=== PATIENT | female | born 1990 | race Caucasian/White ===

== ENCOUNTER 2018-02-01 03:14 | Observation (INO) ==
--- OUTSIDE RECORDS SUMMARY | 2018-02-01 03:19 | External Medical Summary | Continuity of Care Document ---
:1990 Author Organization [facility] Address [address] [place], [place] [id number] Phone Care Team Providers Name Role Phone [facility] Unavailable Allergies, Adverse Reactions, Alerts Substance Reaction Severity Status Penicillins Hives Unknown Active erythromycin base Nausea Unknown Active cephalexin Hives Unknown Active Medications Medication Instructions Dosage Effective Dates Status Comments (start - stop) Vitamin take 1 tablet by Not Available - Active tablet oral route every day ProAir HFA 90 inhale 2 puff by - Active mcg/actuation inhalation route aerosol inhaler every 4 - 6 hours as needed Problems Condition Effective Dates (start - stop) Clinical Status Follow-Up, Routine - Follow-Up, Routine - Follow-Up, Routine - Supervision of other high risk - pregnancies, first trimester Twin , - monochorionic/diamniotic, first trimester Previous Low Transverse - 10 weeks gestation of - Twin preg, unsp num plcnta & amnio - sacs, first trimester Previous Low Transverse - Obesity complicating , first - trimester 9 weeks gestation of - Twin preg, unsp num plcnta & amnio - sacs, first trimester Previous Low Transverse - Pap Smear Screening, Cervix - Encounter for suprvsn of normal - , first trimester 9 weeks gestation of - Twin , - monochorionic/diamniotic, first trimester Previous Low Transverse - 11 weeks gestation of - Previous Low Transverse - Previous Low Transverse - Previous Low Transverse - Pap Smear Screening, Cervix - Asthma Active Active Procedures Procedure Date OB Visit No Charge Results Test Name Date and Time Measure Units Reference Range Abnormal Flag Comments Unknown Advance Directives Directive Yes / No Effective Date File Name Unknown Encounters Encounter Practice Location Reason(s) Diagnoses Date Provider Care Team Description For Visit Members [facility] [place] Supervision of Jose D In Womens other high risk [facility], pregnancies, 8 700 [address] first Medical 1522, [facility] [place], , [place] Abreu, monochorionic/stephanie 120, , mniotic, first [place], trimesterPrevious [place], tel:[phone] Low Transverse [phone] [id number] C-Ilmrrfo56 weeks , [place]. gestation of tel: [phone] [facility] [place] Twin , Jose D In Womens Ultrasound monochorionic/stephanie [facility], mniotic, first 8 700 PO Box trimesterPrevious Medical 1522, Low Transverse Center [place], C-Pucsead15 weeks Saúl Abreu, gestation of 120, , [place], tel:[phone] , [place]. tel: [phone] [facility] [place] Twin preg, unsp Mar-2 Jose D In Womens Ultrasound num plcnta & [facility], amnio sacs, first 8 700 PO Box trimesterPrevious Medical 1522, Low Transverse Center [place], C-SectionObesity Saúl Abreu, complicating 120, [id number], , first [place], [place] trimester9 weeks [place], tel:[phone] gestation of [phone] , [place]. tel: [phone] [facility] [place] Twin preg, unsp Mar-2 Jose D In Womens num plcnta & [facility] CHRISTOPHER, amnio sacs, first 8 700 PO Box trimesterPrevious Medical 1522, Low Transverse Center [place], C-SectionBillie Abreu, [facility], Smear Screening, 120, , CervixEncounter [place], for suprvsn of [place], tel:[phone] normal , [phone] first trimester9 , [place]. weeks gestation tel: of [phone] [facility] [place] Dec-2 Jose D In Womens Follow-Up, 1-201 [facility] CHRISTOPHER, Routine 6 700 PO [address] Medical [address], [address] [place], [facility], 120, [id number], [place], [place], tel:[phone] , [place]. tel: [phone] [facility] [place] Dec-0 Jose D In Womens Follow-Up, 2-201 [facility] CHRISTOPHER, Routine 6 700 PO Box Medical [address], [address] [place], [facility], 120, , [place], tel:[phone] , [place]. tel: [phone] [facility] [place] Nov-2 Jose D In Womens Follow-Up, 3-201 [facility] CHRISTOPHER, Routine 6 700 PO Box Medical [address], [address] [place], [facility] [place], 120, [id number], [place], tel:[phone] , [place]. tel: [phone] [facility] [place] Previous Low Nov-0 Jose D In Womens Transverse 7-201 [facility] CHRISTOPHER, 6 700 PO Box Medical [address], [address] [place], [facility] [place], 120, [id number], [place], tel:[phone] , [place]. tel: [phone] [facility] [place] Previous Low Oct-2 Jose D Referring In Womens Transverse 4-201 [place]. Provider: Health CHRISTOPHER, 6 700 [place] PO Box Medical Jose D L, 1522, [address], [facility] [place], 120, [place] , [place] [facility] 120, [place], tel: [phone] [place], , [place]. [id number]. tel: tel: [phone] [facility] [place] Previous Low Oct-1 Jos Ed In Womens Transverse 0-201 [facility], 6 700 [facility] 15[address], [address] [place], [facility] [place], 120, [id number], [place], tel: [phone] , [place]. tel: [phone] [facility] [place] Sep-1 Jose D Referring In Womens 9-201 [place]. Provider: Health PA, 6 700 [place] PO Box Medical [facility] L, 1522, [address] [place], [facility] [place], 120, [place] [id number], [facility], [place], tel:[phone] [place], , [place]. [id number]. tel: tel: [phone] [facility] [place] Sep-0 Jose D Referring In Womens 7-201 [place]. Provider: Health CHRISTOPHER, 6 700 [place] Box Medical [facility] L, 1522, [address] [place], [facility], 120, [place] [id number], [facility], [place], tel:[phone] [place], , [place]. [id number]. tel: tel: [phone] [facility] [place] Pap Smear Apr-2 Jose D In Womens Screening, Cervix 8-201 [facility] [place], 6 700 [facility] 15[address], [address] [place], [facility] [place], 120, [id number], [place], tel:[phone] , [place]. tel: [phone] [facility] [place] Apr-1 Krystian In Womens 3-201 [facility], 6 700 Box Medical [address], [address] [place], [facility] [place], 120, [id number], [place], tel:[phone] , [place]. tel:[phone] Family History Family Member Diagnosis Age At Onset Maternal Grandmother Stroke Father Diabetes Paternal Grandfather Stroke Maternal Grandfather Stroke Paternal Grandmother Stroke Paternal Grandfather Cardiovascular Disease Father Kidney Disease Paternal Grandmother Cardiovascular Disease Immunizations Vaccine Date Status Comments Tdap completed Source: New Immunization Record Influenza, injectable, completed Source: New Immunization Record quadrivalent, preservative free, 3 yrs or older Rhophylac completed Source: New Immunization Record Payers Payer name Insurance type Covered democrat ID Authorization(s) [employer] [place] [id number] [employer] [place] [id number] [employer] - Medicaid [place] [id number] [employer] - Medicaid [place] [id number] Social History Type Description Quantity Date Captured Alcohol Use Details No Caffeine Use Details Unknown Tobacco Use Status Smoking Status Former smoker Vital Signs Date / Height Weight BMI Pulse Blood Temperature Respiratory Body Head BMI Time: Rate Pressure Rate Surface Circumference percentile Area 254.90 45.1 lbs 5 mm[Hg] 1:32 kg/m PM eter (2) Chief Complaint And Reason For Visit Unknown Chief Complaint And Reason For Visit Reason For Referral Reason For Referral Unknown Plan Of Care Date Type Action Status Appointment Leida Manzano BOOKED Appointment Leida Manzano BOOKED Future Order: Radiology Order Ultrasound < 14 wks ([id number]) Ordered Future Order: Radiology Order Ultrasound OB, Transvaginal ([id number] ) Ordered Future Order: Radiology Order Ultrasound OB, Transvaginal ([id number] ) Ordered Future Order: Radiology Order Ultrasound < 14 wks ([id number]) Ordered Future Order: Lab Order Pap Smear With HPV Reflex If ASCUS Ordered ([id number]) Date Type Problem Goal Intervention Status Start Date Unknown. History Of Present Illness Encounter Date Complaint History Of Present Illness This patient has no known history of present illness Functional Status Encounter Date Functional Assessment Cognitive Assessment Unknown Medications Administered Medication Instructions Dosage Effective Dates (start - stop) Status Comments Drug Treatment Unknown Instructions Date Instruction Additional Information domestic violence seat belt use childbirth classes / hospital facilities hospital registration genetic testing Zika virus assessment & precautions HIV and other routine tests risk factors identified by history anticipated course of care nutrition and weight gain counseling, special diet toxoplasmosis precautions (cats / raw meat) sexual activity exercise indications for ultrasound influenza vaccine environmental / work hazards travel use of any medications (including supplements, vitamins, herbs, OTC drugs) Giving encouragement to exercise Related to Body mass index 45.0-49.9 Giving encouragement to exercise Related to Body mass index 45.0-49.9 HIV and other routine tests risk factors identified by history anticipated course of care nutrition and weight gain counseling, special diet toxoplasmosis precautions (cats / raw meat) sexual activity exercise indications for ultrasound influenza vaccine environmental / work hazards travel use of any medications (including supplements, vitamins, herbs, OTC drugs) domestic violence seat belt use childbirth classes / hospital facilities hospital registration genetic testing new ob handbook risks
--- OUTSIDE RECORDS SUMMARY | 2018-02-01 03:19 | External Medical Summary | Continuity of Care Document ---
:1990 Author Organization [facility] Address [address] [place], [place] [id number] Phone Care Team Providers Name Role Phone [facility] Unavailable Allergies, Adverse Reactions, Alerts Substance Reaction [...] - Follow-Up, Routine - Follow-Up, Routine - Urticaria, unspecified - Twin , - monochorionic/diamniotic, unsp trimester Previous Low Transverse - 16 weeks gestation of - Supervision of other high risk - pregnancies, first trimester Twin , - monochorionic/diamniotic, first trimester Previous Low Transverse - 10 weeks gestation of - Supervision of other high risk - pregnancies, second trimester Twin , - monochorionic/diamniotic, unsp trimester Other malformation of placenta, second - trimester 17 weeks gestation of - Supervision of other high risk - pregnancies, second trimester Twin , - monochorionic/diamniotic, unsp trimester Previous Low Transverse - Type A blood, Rh negative - Twin preg, unsp num plcnta & [...] Transverse - 11 weeks gestation of - Twin , - monochorionic/diamniotic, first trimester Previous Low Transverse - Obesity complicating , second - trimester 14 weeks gestation of - Twin , - monochorionic/diamniotic, unsp trimester Previous Low Transverse - 14 weeks gestation of - Type A blood, Rh negative - Previous Low Transverse - Previous Low Transverse - Previous Low Transverse - Pap Smear Screening, Cervix - Asthma Active Active Procedures Procedure Date OB Visit No Charge - [employer] Results Test Name Date and Time Measure Units Reference Range Abnormal Flag Comments Unknown Advance Directives Directive Yes / No Effective Date File Name Unknown Encounters Encounter Practice Location Reason(s) Diagnoses Date Provider Care Team Description For Visit Members [facility] [place] Supervision of Jose D In Womens other high risk 0-201 [facility], pregnancies, 8 700 PO Box [facility] 1522, [facility], , Dr, Sa[place], monochorionic/stephanie 120, [id number], mniotic, unsp [place], [place] trimesterPrevious [place], tel:+ Low Transverse [phone] C-SectionType A , [place]. blood, Rh tel: negative [phone] [facility] [place] Supervision of November-3 Jose D In Womens Ultrasound other high risk 0-201 [facility], pregnancies, 8 700 PO Box second Medical 1522, trimesterTwin Center [place], , Saúl Abreu, monochorionic/stephanie 120, [id number], mniotic, unsp [place], [place] trimesterOther [place], tel:+ malformation of [phone] placenta, second , [place]. [id number] weeks tel: gestation of [phone] [facility] [place] Urticaria, November-2 Jose D In Womens unspecifiedTwin 1-201 [facility], , 8 700 PO Box monochorionic/stephanie Medical 1522, mniotic, unsp Center [place], trimesterPrevious Saúl Abreu, Low Transverse 120, [id number], C-Qpfsdkq93 weeks [place], gestation of [place], tel:+ [phone] , [place]. tel: [phone] [facility] [place] Twin , May-1 Jose D In Womens monochorionic/stephanie 0-201 [facility], mniotic, unsp 8 700 PO Box trimesterPrevious Medical 1522, Low Transverse Center [place], C-Dkappui13 weeks Saú[place] Abreu, gestation of 120, , pregnancyType A [place], [place] blood, Rh [place], tel:+ negative [phone] , [place]. tel: [phone] [facility] [place] Twin , May-1 Jose D In Womens Ultrasound monochorionic/stephanie 0-201 [facility], mniotic, first 8 700 PO Box trimesterPrevious Medical 1522, Low Transverse [place], C-SectionObesity Saúl Abreu, complicating 120, [id number], , second [place], [place] [id number] weeks [place], tel:[phone] gestation of [phone] [id number] , [place]. tel: [phone] [facility] [place] Supervision of Oct- Jose D In Womens other high risk [facility], pregnancies, 8 700 PO Box first Medical 1522, trimesterTwin Center [place], , Saúl Abreu, monochorionic/stephanie 120, [id number], mniotic, first [place], [place] trimesterPrevious [place], tel:+ Low Transverse [phone] C-Glhzeck80 weeks , [place]. gestation of tel: [phone] [facility] [place] Twin , Apr-1 Jose D In Womens Ultrasound monochorionic/stephanie - [facility], mniotic, first 8 700 PO Box trimesterPrevious Medical 1522, Low Transverse [place], C-Ovidjnr41 weeks Saú[place] Abreu, gestation of 120, , [place], [place], tel:[phone] , [place]. tel: [phone] [facility] [place] Twin preg, unsp Mar-2 Jose D In Womens Ultrasound num plcnta & [facility], amnio sacs, first 8 700 PO Box trimesterPrevious Medical 1522, Low Transverse [facility] [place], C-SectionObesity Saúl Abreu, complicating 120, , , first [place], trimester9 weeks [place], tel: gestation of , [place]. tel: [phone] [facility] [place] Twin preg, unsp Mar-2 Jose D In Womens num plcnta & [facility], amnio sacs, first 8 700 PO Box trimesterPrevious Medical 1522, Low Transverse [place], C-SectionPap Saú[place] Abreu, Smear Screening, 120, , CervixEncounter [place], for suprvsn of [place], tel: normal , first trimester9 , [place]. weeks gestation tel: of [phone] [facility] [place] Dec-2 Jose D In Womens Follow-Up, [place] CHRISTOPHER, Routine 6 700 PO Box Medical 1522, [place], [place] Abreu, 120, [id number], [facility] [place], tel:[phone] , [place]. tel: [phone] [facility] [place] Dec-0 Jose D In Womens Follow-Up, 2-201 [facility], Routine 6 700 PO Box Medical [address], [address] [place], [facility] [place], 120, [id number], [facility] [place], tel:[phone] , [place]. tel: [phone] [facility] [place] Nov-2 Jose D In Womens Follow-Up, 3-201 [place], Routine 6 700 PO Box Medical 15[address], [address] [place], [facility], 120, [id number], [facility], tel:[phone] , [place]. tel: [phone] [facility] [place] Previous Low Nov-0 Jose D In Womens Transverse 7-201 [place], 6 700 PO [place] [facility] 15[address], [address] [place], [facility], 120, [id number], [facility] [place], tel:[phone] , [place]. tel: [phone] [facility] [place] Previous Low Oct-2 Jose D Referring In Womens Transverse 4-201 [place]. Provider: Health PA, 6 700 [place] PO Box Medical Jose D L, 1522, [address], [facility], 120, [place] [id number], [place] [address], [place], [place], tel:[phone] [place], , . [id number]. tel: tel: [phone] [facility] [place] Previous Low Oct-1 Jose D In Womens Transverse 0-201 [facility], 6 700 PO Box Medical 15[address], [address] [place], [facility] [place], 120, [id number], [facility] [place], tel:[phone] , [place]. tel: [phone] [facility] [place] Sep-1 Jose D Referring In Womens 9-201 [place]. Provider: Health CHRISTOPHER, 6 700 [place] PO Box Medical Jose D L, 1522, Center [address] [place], [facility] Medical [place], 120, Center [id number], [place], [facility] 120, [place], [place], tel:[phone] [place], , [place]. [id number]. tel: tel:+ [phone] [facility] [place] Sep-0 Jose D Referring In Womens 7-201 [place]. Provider: Yessy WHITE, 6 700 [place] Box Medical Jose D L, 1522, Center [address] [place], [facility] Medical [place], 120, Center [id number], [place], [facility] 120, [place], [place], tel:[phone] [place], , [place]. [id number]. tel: tel:[phone] [facility] [place] Pap Smear Apr-2 Jose D In Womens Screening, Cervix 8-201 [place]. Yessy WHITE, 6 700 [facility] Medical 15[address], [address] [place], [facility] [place], 120, [id number], [place], [place], tel:[phone] , [place]. tel: [phone] [facility] [place] Apr-1 Krystian In Womens 3-201 Tran. Yessy WHITE, 6 700 [facility] Medical 15[address], [address] [place], [facility] [place], 120, [id number], [place], tel:[phone] , [place]. tel: [phone] Family History Family Member Diagnosis Age At [...] Authorization(s) [employer] - Medicaid [place] [id number] [employer] - Medicaid [place] [id number] [employer] - Medicaid [place] [id number] [employer] - Medicaid [place] [id number] Social History Type Description Quantity Date Captured Alcohol Use Details No Caffeine Use Details Unknown Tobacco Use Status Smoking Status Former smoker Vital Signs Date / Height Weight BMI Pulse Blood Temperature Respiratory Body Head BMI Time: Rate Pressure Rate Surface Circumference percentile Area 261.60 46.3 -2018 lbs 4 12:02 kg/m PM eter (2) 261.60 46.3 120/72 -2018 lbs 4 mm[Hg] 12:21 kg/m PM eter (2) Chief Complaint And Reason For Visit Unknown Chief Complaint And Reason For Visit Reason For Referral Reason For Referral Unknown Plan Of Care Date Type Action Status Appointment Leida Manzano BOOKED Appointment Leida Manzano BOOKED Appointment Leida Manzano BOOKED Appointment Leida Manzano BOOKED Appointment Leida Manzano BOOKED Appointment Leida Manzano BOOKED Appointment Leida Manzano BOOKED Appointment Leida Manzano BOOKED Appointment Leida Manzano BOOKED Appointment Leida Manzano BOOKED Appointment Leida Manzano BOOKED Appointment Leida Manzano BOOKED Appointment Leida Manzano BOOKED Appointment Leida Manzano BOOKED Appointment Leida Manzano BOOKED Appointment Leida Manzano BOOKED Appointment Leida Manzano BOOKED Appointment Leida Manzano BOOKED Appointment Leida Manzano BOOKED Appointment Leida Manzano BOOKED Appointment Leida Manzano BOOKED Appointment Leida Manzano BOOKED Appointment Leida Manzano BOOKED Appointment Leida Manzano BOOKED Appointment Leida Manzano BOOKED Appointment Leida Manzano BOOKED Appointment Leida Manzano BOOKED Appointment Leida Manzano BOOKED Appointment Leida Manzano BOOKED Appointment Leida Manzano BOOKED Appointment Leida Manzano BOOKED Appointment Leida Manzano BOOKED Appointment Leida Manzano BOOKED Appointment Leida Manzano BOOKED Future Order: Radiology Order Ultrasound, OB Limited ([id number]) Ordered Future Order: Radiology Order Umbilical Artery Echo ([id number]) Ordered Future Order: Radiology Order Ultrasound < 14 wks ([id number]) Ordered Future Order: Radiology Order Ultrasound OB, Transvaginal ([id number] ) Ordered Future Order: Radiology Order Ultrasound OB, Transvaginal ([id number] ) Ordered Future Order: Radiology Order Ultrasound < 14 wks ([id number]) Ordered Future Order: Radiology Order Ultrasound < 14 wks ([id number]) Ordered Future Order: Lab Order Pap Smear [...]
--- OUTSIDE RECORDS SUMMARY | 2018-02-01 03:19 | External Medical Summary | Continuity of Care Document ---
:1990 Author Organization [facility] [employer] [facility] [place] Address [address] [place], [place] [id number] Phone Care Team Providers Name Role Phone [facility] Unavailable Allergies, Adverse Reactions, Alerts Substance Reaction [...] - Follow-Up, Routine - Follow-Up, Routine - Twin preg, unsp num plcnta & amnio - sacs, first trimester Previous Low Transverse - Pap Smear Screening, Cervix - Encounter for angelan of normal - , first trimester 9 weeks gestation of - Supervision of other [...] - Asthma Active Active Procedures Procedure Date Pap Smear handling/transport Initial OB Visit No Charge - OPERATING ROOM SCHEDULER Infct antign, chlamydia trac, ampl Neisseria Gonorrhea, Amplified DNA Results Test Name Date and Time Measure Units Reference Range Abnormal Flag Comments Panel Description: Pap Smear With HPV Reflex If ASCUS Document Pap Smear 14:15:00 See scanned report Panel Description: Obstetric Panel, Including HIV HBsAg Screen Negative Negative 15:20:00 RPR Non Reactive Non Reactive 15:20:00 Rubella 1.58 index Immune >0.99 Antibodies, IgG 15:20:00 Non-immune <0.90 Equivocal 0.90 - 0.99 Immune >0.99 ABO Grouping A 15:20:00 Rh Factor Negative Please note: 15:20:00 Prior records for this patient's ABO / Rh type are notavailable for additional verification. Antibody Screen Negative Negative 15:20:00 HIV Screen 4th Non Reactive Non Reactive Generation wRfx 15:20:00 WBC 9.5 x10E3/uL 3.4-10.8 15:20:00 RBC 4.70 x10E6/uL 3.77-5.28 15:20:00 Hemoglobin 12.8 g/dL 11.1-15.9 15:20:00 Hematocrit 40.6 % 34.0-46.6 15:20:00 MCV 86 fL 79-97 15:20:00 MCH 27.2 pg 26.6-33.0 15:20:00 MCHC 31.5 g/dL 31.5-35.7 15:20:00 RDW 15.0 % 12.3-15.4 15:20:00 Platelets 316 x10E3/uL 150-379 15:20:00 Neutrophils 71 % Not Estab. 15:20:00 Lymphs 22 % Not Estab. 15:20:00 Monocytes 7 % Not Estab. 15:20:00 Eos 0 % Not Estab. 15:20:00 Basos 0 % Not Estab. 15:20:00 Immature Cells 15:20:00 Neutrophils 6.7 x10E3/uL 1.4-7.0 (Absolute) 15:20:00 Lymphs (Absolute) 2.1 x10E3/uL 0.7-3.1 15:20:00 Monocytes(Absolut 0.6 x10E3/uL 0.1-0.9 e) 15:20:00 Eos (Absolute) 0.0 x10E3/uL 0.0-0.4 15:20:00 Baso (Absolute) 0.0 x10E3/uL 0.0-0.2 15:20:00 Immature 0 % Not Estab. Granulocytes 15:20:00 Immature Grans 0.0 x10E3/uL 0.0-0.1 (Abs) 15:20:00 NRBC 15:20:00 Hematology Comments: 15:20:00 Panel Description: Bacteria identified in Urine by Culture Urine Culture, 15:18:00 Final report Routine Result 1 15:18:00 Comment Culture shows less than 10,000 colony forming units of bacteria permilliliter of urine. This colony count is not generally consideredto be clinically significant. Panel Description: GC/CT Amplified Probe Chlamydia Trachomatis RNA, [facility] 14:51:03 Negative Negative N Neisseria Gonorrhoeae RNA, [facility] 14:51:03 Negative Negative N Advance Directives Directive Yes / No Effective Date File Name Unknown Encounters Encounter Practice Location Reason(s) Diagnoses Date Provider Care Team Description For Visit Members [facility] [place] Supervision of Oct- Jose D In Womens other high risk [place], pregnancies, 8 700 [address] first Medical 1522, trimesterTwin Center [employer] [place], , Sa[place]l Abreu, monochorionic/stephanie 120, [id number], mniotic, first [place], trimesterPrevious [place], tel:+ Low Transverse [phone] C-Ekksdkd70 weeks , [place]. gestation of tel: [phone] [facility] [place] Twin , Apr- Jose D In Womens Ultrasound monochorionic/stephanie [facility] [place], mniotic, first 8 700 PO Box trimesterPrevious Medical 1522, Low Transverse Center [employer] [place], C-Eqwemtj21 weeks Saúl Abreu, gestation of 120, , [place], tel:[phone] , [place]. tel: [phone] [facility] [place] Twin preg, unsp Mar-2 Jose D In Womens Ultrasound num plcnta & [facility] [place], amnio sacs, first 8 700 PO Box trimesterPrevious Medical 1522, Low Transverse Center [employer] [place], C-SectionObesity Saúl Abreu, complicating 120, [id number], , first [place], [place] trimester9 weeks [place], tel:+ gestation of , [place]. tel: [phone] [facility] [place] Twin preg, unsp Mar-2 Jose D In Womens num plcnta & [facility] [place], amnio sacs, first 8 700 PO Box trimesterPrevious Medical 1522, Low Transverse Center [employer] [place], C-SectionPap Saúl Abreu, Smear Screening, 120, , CervixEncounter [place], for suprvsn of [place], tel:[phone] normal , [phone] [id number] first trimester9 , [place]. weeks gestation tel: of [phone] [facility] [place] Dec-2 Jose D In Womens Follow-Up, [facility] [place], Routine 6 700 PO Box Medical [address], [address] [place], [facility] [place], 120, [id number], [place], tel: [phone] , [place]. tel: [phone] [facility] Dec-0 Jose D In Womens Follow-Up, 2-201 [facility] [place], Routine 6 700 [facility] Medical 15[address], [address] [place], [facility] [place], 120, [id number], [place], tel: [phone] , [place]. tel: [phone] [facility] [place] Nov-2 Jose D In Womens Follow-Up, 3-201 [facility] [place], Routine 6 700 [facility] Medical [address], [address] [place], [facility], 120, [id number], [facility] [place], tel:[phone] , [place]. tel: [phone] [facility] [place] Previous Low Nov-0 Jose D In Womens Transverse 7-201 [facility] [place], 6 700 [facility] Medical [address], [address] [place], [facility], 120, [id number], [place], [place], tel:[phone] , [place]. tel: [phone] [facility] [place] Previous Low Oct-2 Jose D Referring In Womens Transverse 4-201 [place]. Provider: Health CHRISTOPHER, 6 700 [place] PO Box Medical Jose D L, [address], [address], [facility] [place], 120, [place] [id number], [place] [address], [place], [place], tel:[phone] [place], , [place]. [id number]. tel: tel: [phone] [facility] [place] Previous Low Oct-1 Jose D In Womens Transverse 0-201 [facility] [place], 6 700 [address] [place] [facility] [address], [address] [place], [facility] [place], 120, [id number], [place], tel:[phone] , [place]. tel: [phone] [facility] [place] Sep-1 Jose D Referring In Womens 9-201 [place]. Provider: Health CHRISTOPHER, 6 700 [place] PO Box Medical Jose D L, 1522, [facility] Dr [place], [facility] [place], 120, [place] [id number], [place], [facility] 120, [place], [place], tel:[phone] [place], , [place]. [id number]. tel: tel: [phone] [facility] [place] Sep-0 Jose D Referring In Womens 7-201 [place]. Provider: Health CHRISTOPHER, 6 700 [place] PO Box Medical Jose D L, 1522, Center [address], [facility] [place], 120, [place] [id number], [place], [facility] 120, [place], [place], tel:[phone] [place], , [place]. [id number]. tel: tel: [phone] [facility] [place] Pap Smear Oct-2 Jose D In Womens Screening, Cervix 8-201 [facility] [place], 6 700 [facility] Medical [address], [address] [place], [facility] [place], 120, [id number], [place], tel:[phone] , [place]. tel: [phone] [facility] [place] Oct-1 Krystian In Womens 3-201 Tran. Health [place], 6 700 Box Medical [address], [address] [place], [facility] [place], 120, [id number], [place], tel:[phone] , [place]. tel: [phone] Family History Family Member Diagnosis Age At [...] name Insurance type Covered democrat ID Authorization(s) [facility] [place] [id number] [employer] [place] [employer] - Medicaid [place] [id number] [employer] - Medicaid [place] [id number] [employer] [place] [employer] - Medicaid [place] [id number] Social History Type Description Quantity Date Captured Alcohol Use Details No Caffeine Use Details Unknown Tobacco Use Status Never smoked tobacco Smoking Status Former smoker Non-Smoking Tobacco Use : No Details Available : No Details Available Details Vital Signs Date / Height Weight BMI Pulse Blood Temperature Respiratory Body Head BMI Time: Rate Pressure Rate Surface Circumference percentile Area 250.60 44.3 132/80 lbs 9 mm[Hg] 2:25 kg/m PM eter (2) Chief Complaint And Reason For Visit Unknown Chief Complaint And Reason For Visit Reason For Referral Reason For Referral Unknown Plan Of Care Date Type Action Status Appointment Leida Manzano BOOKED Appointment Leida Manzano BOOKED Future Order: Radiology Order Ultrasound < 14 wks ([id number]) Ordered Future Order: Radiology Order Ultrasound OB, Transvaginal ([id number] ) Ordered Future Order: Radiology Order Ultrasound OB, Transvaginal ([id number] ) Ordered Future Order: Radiology Order Ultrasound < 14 wks ([id number]) Ordered Future Order: Lab Order Pap Smear [...]
--- OUTSIDE RECORDS SUMMARY | 2018-02-01 03:19 | External Medical Summary | Continuity of Care Document ---
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 - Morbid (severe) obesity due to excess - calories Twin , - monochorionic/diamniotic, unsp trimester Previous Low Transverse - Type A blood, Rh negative - Urticaria, unspecified - Twin , - [...] Other malformation of placenta, second - trimester 21 weeks gestation of - Supervision of other high risk - pregnancies, second trimester Twin , - monochorionic/diamniotic, unsp trimester Other malformation of placenta, second - trimester 17 weeks gestation of - Supervision of other high risk - pregnancies, second trimester Twin , - monochorionic/diamniotic, unsp trimester Previous Low Transverse - Type A blood, Rh negative - Supervision of other high risk - [...] - Asthma Active Active Procedures Procedure Date Ultrasnd exam, preg uterus, limited UMBILICAL ARTERY ECHO MIDDLE CEREBRAL ARTERY ECHO Results Test Name Date and Time Measure Units Reference Range Abnormal Flag Comments Unknown Advance Directives Directive Yes / No Effective Date File Name Unknown Encounters Encounter Practice Location Reason(s) Diagnoses Date Provider Care Team Description For Visit Members [facility] [place] Supervision of Dec-2 Jose D Referring In Womens other high risk 8-201 [place]. Provider: [facility], pregnancies, 8 700 Lashell Wedit Eliceo dudley [employer] Rahul, 1522, trimesterTwin Center 700 [place], Sa[place]l Abreu, monochorionic/stephanie 120, Center [id number], nataly, unsdedra [place], Saúl 120, [place] trimesterPrevious [place], tel:[phone] Low Transverse [id number] [place], C-SectionType A , [place]. [id number]. blood, Rh tel: tel:[phone] negative [phone] [facility] [place] Supervision of Rafael-2 Jose D Referring In Womens Ultrasound other high risk 8-201 [place]. Provider: [facility], pregnancies, 8 700 Lashell Fenton luis enrique [employer] J, 1522, trimesterTwin Center 700 angie [place], Sa[place] Abreu, monochorionic/stephanie 120, Center [id number], mnimarcy, unsp [place], Saúl 120, [place] trimesterOther [place], tel:[phone] malformation of [id number] [place], [address] placenta, second , [place]. [id number]. qigvirbtq48 weeks tel:+31 tel:+1-316 gestation of [id number] [facility] [place] Morbid (severe) Rafael-1 Jose D In Womens obesity due to 4-201 [facility], excess 8 700 PO Box caloriesTwin Medical 1522, , [facility], monochorionic/stephanie , [place], mniotic, unsp 120, [id number], trimesterPrevious [place], [place] Low Transverse [place], tel:[phone] C-SectionType A [id number] blood, Rh , [place]. negative tel:[phone] [facility] [place] Supervision of Rafael-1 Jose D In Womens Ultrasound other high risk 4-201 [facility]. [facility] [place], pregnancies, 8 700 PO Box second Medical 1522, [facility], , Sa[place]l Abreu, monochorionic/stephanie 120, [id number], mniotic, unsp [place], [place] trimesterOther [place], tel:[phone] malformation of [id number] 492039 placenta, second , [place]. hkvdykpol18 weeks tel:+08-16 gestation of [phone] [facility] [place] Supervision of November-3 Jose D In Womens other high risk 0-201 [facility] [place], pregnancies, 8 700 PO Box second Medical 1522, [facility], , Sa[place] Abreu, monochorionic/stephanie 120, [id number], mniotic, unsp [place], [place] trimesterPrevious [place], tel:[phone] Low Transverse [id number] C-SectionType A , [place]. blood, Rh tel:+08-16 negative [phone] [facility] [place] Supervision of November-3 Jose D In Womens Ultrasound other high risk 0-201 [facility] [place], pregnancies, 8 700 PO Box second Medical 1522, [facility], , Saúl Abreu, monochorionic/stephanie 120, [id number], mniotic, unsp [place], [place] trimesterOther [place], tel:[phone] malformation of [id number] placenta, second , [place]. nywodebis76 weeks tel:+1-31 gestation of [phone] [facility] [place] Urticaria, May-2 Jose D In Womens unspecifiedTwin 1-201 [facility], , 8 700 PO Box monochorionic/stephanie Medical 1522, mniotic, unsp [facility], trimesterPrevious Sa[place]l Abreu, Low Transverse 120, [id number], C-Ocivwvq65 weeks [place], gestation of [place], tel:+ [phone] [address] , [place]. tel: [phone] [facility] [place] Twin , May-1 Jose D In Womens monochorionic/stephanie 0-201 [facility] [place], mniotic, unsp 8 700 PO Box trimesterPrevious Medical 1522, Low Transverse Center [place], C-Yxdzejk97 weeks Saúl Abreu, gestation of 120, [id number], pregnancyType A [place], [place] blood, Rh [place], tel:+ negative [phone] 196790 , [place]. tel: [phone] [facility] [place] Twin , November-1 Jose D In Womens Ultrasound monochorionic/stephanie 0-201 [facility] [place], mniotic, first 8 700 PO Box trimesterPrevious Medical 1522, Low Transverse Center [place], C-SectionObesity Saúl Abreu, complicating 120, [id number], , second [place], exfcysvgr05 weeks [place], tel:+ gestation of [phone] 196790 , [place]. tel: [phone] [facility] [place] Supervision of Apr-1 Jose D In Womens other high risk 2-201 [facility] [place], pregnancies, 8 700 PO Box first Medical 1522, trimesterTwin Center [place], , Sa[place]l Abreu, monochorionic/stephanie 120, [id number], mniotic, first [place], trimesterPrevious [place], tel:+ Low Transverse [phone] 196790 C-Lsiuztx38 weeks , [place]. gestation of tel: [phone] [facility] [place] Twin , Apr-1 Jose D In Womens Ultrasound monochorionic/stephanie 2-201 [facility] [place], mniotic, first 8 700 PO Box trimesterPrevious Medical 1522, Low Transverse Center [place], C-Tgjkcvr56 weeks Saúl Abreu, gestation of 120, [id number], [place], tel:+ [phone] , [place]. tel: [phone] [facility] [place] Twin preg, unsp Mar-2 Jose D In Womens Ultrasound num plcnta & 9201 [place] [place], amnio sacs, first 8 700 PO Box trimesterPrevious Medical 1522, Low Transverse Center [place], C-SectionObesity , [place], complicating 120, , , first [place], trimester9 weeks [place], tel:+[phone] gestation of [id number] 196790 , [place]. tel: [phone] [facility] [place] Twin preg, unsp Mar-2 Jose D In Womens num plcnta & 9 [facility], amnio sacs, first 8 700 PO Box trimesterPrevious Medical 1522, Low Transverse Center [place], C-SectionPadedra Abreu, [place], Smear Screening, 120, , CervixEncounter [place], for suprvsn of [place], tel:+[phone] normal , first trimester9 , [place]. weeks gestation tel: of [phone] [facility] [place] Dec-2 Jose D In Womens Follow-Up, 1-201 [place] [place], Routine 6 700 PO Box Medical [address], [address], [place], 120, , [place], [place], tel:[phone] , [place]. tel: [phone] [facility] [place] Dec-0 Jose D In Womens Follow-Up, 2-201 [place] [place], Routine 6 700 PO Box Medical 15[address], [address], [place], 120, , [place], [place], tel:[phone] , [place]. tel: [phone] [facility] [place] Nov-2 Jose D In Womens Follow-Up, 3-201 [place]. [facility] [place], Routine 6 700 PO Box Medical 1522, [address], [place], 120, [id number], [facility] [place], tel:[phone] , [place]. tel: [phone] [facility] [place] Previous Low Nov-0 Jose D In Womens Transverse 7-201 [place]. Health CHRISTOPHER, 6 700 PO Box Medical 1522, [address] [place], [facility] [place], 120, [id number], [place], [place], tel:[phone] , [place]. tel: [phone] [facility] [place] Previous Low Oct-2 Jose D Referring In Womens Transverse 4-201 [place]. Provider: Yessy WHITE, 6 700 [place] PO Box Medical Jose D L, 1522, Center [address], [facility] [place], 120, Center [id number], [place], [facility] 120, [place], tel:[phone] [place], , [place]. [id number]. tel: tel:[phone] [facility] [place] Previous Low Oct-1 Jose D In Womens Transverse 0-201 [place]. Yessy WHITE, 6 700 [facility] Medical 1522, [address] [place], [facility] [place], 120, [id number], [place], tel:[phone] , [place]. tel: [phone] [facility] [place] Sep-1 Jose D Referring In Womens 9-201 [place]. Provider: Yessy WHITE, 6 700 [place] PO Box Medical Jose D L, 1522, Center [address], [facility] [place], 120, Center [id number], [place] [facility] 120, [place], tel:[phone] [place], , [place]. [id number]. tel: tel:[phone] [facility] [place] Sep-0 Jose D Referring In Womens 7-201 [place]. Provider: Yessy WHITE, 6 700 [place] PO Box Medical Jose D L, 1522, Center [address], [facility] [place], 120, Center [id number], [facility], [place], tel:[phone] [place], , [place]. [id number]. tel: tel:[phone] [facility] [place] Pap Smear Apr-2 Jose D In Womens Screening, Cervix 8-201 [place]. [facility], 6 700 PO Box Medical 15[address], [address] [place], [facility] [place], 120, [id number], [facility] [place], tel:[phone] [address] , . tel: [phone] [facility] [place] Krystian In Womens 3-201 Tran. [facility], 6 700 PO Box Medical 15[address], [address] [place], [facility] [place], 120, [id number], [facility] [place], tel:[phone] , [place]. tel: [phone] Family History Family Member Diagnosis Age At [...] Record Payers Payer name Insurance type Covered alliance party ID Authorization(s) [employer] [place] [employer] - Medicaid [place] [id number] [employer] - Medicaid [place] [id number] [employer] - Medicaid [place] [id number] [employer] - Medicaid [place] [id number] Social History Type Description Quantity Date Captured Unknown Vital Signs Date / Height Weight BMI Pulse Blood Temperature Respiratory Body Head BMI Time: Rate Pressure Rate Surface Circumference percentile Area Unknown Chief Complaint And Reason For Visit Unknown Chief Complaint And Reason For Visit Reason For Referral Reason For Referral Unknown Plan Of Care Date Type Action Status Appointment Leida Manzano BOOKED Appointment Leida Manzano BOOKED Appointment Leida Manzano BOOKED Appointment Leida Manzano BOOKED Appointment Leida Manzano BOOKED Appointment Leida Manzano BOOKED Appointment Leida Manzano BOOKED Appointment Leida Manzano BOOKED Appointment Jose JuanLeida macdonald BOOKED Appointment [place] BOOKED Appointment Jose JuanLeida BOOKED Appointment Jose JuanLeida BOOKED Appointment [place] BOOKED Appointment [place] BOOKED Appointment [place] BOOKED Appointment [place] Leida BOOKED Appointment Jose Juan Leida BOOKED Appointment [place], Leida BOOKED Appointment Jose Juan, Leida BOOKED Appointment Jose Juan, Leida BOOKED Appointment [place], Leida BOOKED Appointment [place], Leida BOOKED Appointment [place], Leida BOOKED Appointment [place], Leida BOOKED Appointment Jose Juan, Leida BOOKED Appointment Jose Juan, Leida BOOKED Appointment [place] BOOKED Future Order: Radiology Order Ultrasound, OB Limited ([id number]) Ordered Future Order: Radiology Order Umbilical Artery Echo ([id number]) Ordered Future Order: Radiology Order Ultrasound, OB Limited ([id number]) Ordered Future Order: Radiology Order Umbilical Artery Echo ([id number]) Ordered Future Order: Radiology Order Ultrasound, OB Limited ([id number]) Ordered Future Order: Radiology Order Umbilical Artery Echo ([id number]) Ordered Future Order: Radiology Order Ultrasound < 14 wks ([id number]) Ordered Future Order: Radiology Order Ultrasound OB, Transvaginal ([id number] ) Ordered Future Order: Radiology Order Ultrasound OB, Transvaginal ([id number] ) Ordered Future Order: Radiology Order Ultrasound < 14 wks ([id number]) Ordered Future Order: Radiology Order Ultrasound < 14 wks ([id number]) Ordered Future Order: Lab Order Pap Smear [...]
--- OUTSIDE RECORDS SUMMARY | 2018-02-01 03:19 | External Medical Summary | Continuity of Care Document ---
:1990 Author Organization [facility] Address [address] [place], [place] [id number] Phone Care Team Providers Name Role Phone [facility] Unavailable Allergies, Adverse Reactions, Alerts [...] every 4 - 6 hours as needed Bactrim DS 800 take 1 tablet by Not Available - No Longer mg-160 mg tablet oral route every Active 12 hours for 5 days Problems Condition Effective Dates (start - stop) Clinical Status Follow-Up, Routine - Follow-Up, Routine - Follow-Up, Routine - Morbid (severe) obesity due to excess [...] - trimester 19 weeks gestation of - Supervision of other [...] Members Sage [place] Supervision of Jose D Referring In Womens other high risk 8-201 Victor[place]. Provider: Health CHRISTOPHER, pregnancies, 8 700 [employer] second Medical Rylan Kay, 1522, trimesterTwin Center [address], Ste Medical [place] monochorionic/stephanie 120, Center [id number], william ingram, Saú[place] 120, [place] trimesterPrevious [place], tel:[phone] Low Transverse [id number] [place], C-SectionType A , [place]. [id number]. blood, Rh tel: tel:[phone] negative [phone] [facility] [place] Supervision of Jose D Referring In Womens Ultrasound other high risk 8-201 Victorina. Provider: Yessy WHITE, pregnancies, 8 700 Lashell Treatsie Box second [employer] Rylan Kay, 1522, trimesterTwin Center [address], [place] Abreu, monochorionic/stephanie 120, Center [id number], mnimarcy, unsp [place], Sa[place]l 120, [place] trimesterOther [place], tel:[phone] malformation of [id number] [place], 2150[address] placenta, second , [place]. [id number]. [id number] weeks tel:+08-16 tel:+1-316 gestation of [id number] [facility] [place] Morbid (severe) Rafael-1 Jose D In Womens obesity due to 4-201 Victorina. Health PA, excess 8 700 PO Box caloriesTwin Medical 1522, , [facility], monochorionic/stephanie , [place], mniotic, unsp 120, [id number], trimesterPrevious [place], [place] Low Transverse [place], tel:[phone] C-SectionType A [id number] blood, Rh , [place]. negative tel:[phone] [facility] [place] Supervision of Rafael-1 Jose D In Womens Ultrasound other high risk 4-201 Victorina. Health PA, pregnancies, 8 700 PO Box second Medical 1522, [facility], , [place] Abreu, monochorionic/stephanie 120, [id number], mniotic, unsp [place], [place] trimesterOther [place], tel:+ malformation of [phone] placenta, second , [place]. [id number] weeks tel:+08-16 gestation of [phone] [facility] [place] Supervision of November-3 Jose D In Womens other high risk 0-201 Victorina. Health PA, pregnancies, 8 700 PO Box second Medical 1522, trimesterTwin [facility], , Sa[place] Abreu, monochorionic/stephanie 120, [id number], mniotic, unsp [place], [place] trimesterPrevious [place], tel:+ Low Transverse [phone] C-SectionType A , [place]. blood, Rh tel: negative [phone] [facility] [place] Supervision of November-3 Jose D In Womens Ultrasound other high risk 0-201 Victor[place]. Health PA, pregnancies, 8 700 PO Box second Medical 1522, [facility] [place], , [place] Abreu, monochorionic/stephanie 120, [id number], mniotic, unsp [place], [place] trimesterOther [place], tel:[phone] malformation of [phone] [id number] placenta, second , [place]. [id number] weeks tel:+31 gestation of [phone] [facility] [place] Urticaria, May-2 Jose D In Womens unspecifiedTwin 1-201 Victorina. Health PA, , 8 700 PO Box monochorionic/stephanie Medical 1522, mniotic, unsp Center [place], trimesterPrevious [place] Abreu, Low Transverse 120, [id number], C-Inatzie25 weeks [place], gestation of [place], tel:+ [phone] , [place]. tel: [phone] [facility] [place] Twin , May-1 Jose D In Womens monochorionic/stephanie 0-201 Victorina. Health PA, mniotic, unsp 8 700 PO Box trimesterPrevious Medical 1522, Low Transverse Center [place], C-Ipbmpvk62 weeks Sa[place] Abreu, gestation of 120, [id number], pregnancyType A [place], blood, Rh [place], tel:+ negative [phone] 196790 , [place]. tel: [phone] [facility] [place] Twin , May-1 Jose D In Womens Ultrasound monochorionic/stephanie 0-201 Victorina. Health PA, mniotic, first 8 700 PO Box trimesterPrevious Medical 1522, Low Transverse Center [place], C-SectionObesity [place] Abreu, complicating 120, [id number], , second [place], [id number] weeks [place], tel:+ gestation of [phone] 196790 , [place]. tel: [phone] [facility] [place] Supervision of Apr-1 Jose D In Womens other high risk 2-201 [place]. Health PA, pregnancies, 8 700 PO Box first Medical 1522, trimesterTwin Center [place], , [place] Abreu, monochorionic/stephanie 120, [id number], mniotic, first [place], [place] trimesterPrevious [place], tel:+ Low Transverse [phone] C-Fdcieyl66 weeks , [place]. gestation of tel: [phone] [facility] [place] Twin , Apr-1 Jose D In Womens Ultrasound monochorionic/stephanie 2-201 Victorina. Health PA, mniotic, first 8 700 PO Box trimesterPrevious Medical 1522, Low Transverse [place], C-Sldfokj29 weeks Sa[place] Abreu, gestation of 120, [id number], [place], [place], tel:+ [phone] , [place]. tel:[phone] [facility] [place] Twin preg, unsp Mar-2 Jose D In Womens Ultrasound num plcnta & 9 Victorina. Health PA, amnio sacs, first 8 700 PO Box trimesterPrevious Medical 1522, Low Transverse [place], C-SectionObesity , [place], complicating 120, [id number], , first [place], [place] trimester9 weeks [place], tel:+[phone] gestation of , [place]. tel: [phone] [facility] [place] Twin preg, unsp Mar-2 Jose D In Womens num plcnta & 9 Victorina. Health PA, amnio sacs, first 8 700 PO Box trimesterPrevious Medical 1522, Low Transverse [place], C-SectionPap , [place], Smear Screening, 120, , CervixEncounter [place], for suprvsn of [place], tel:+ normal , first trimester9 , [place]. weeks gestation tel:+08-16 of [phone] [facility] [place] Dec-2 Jose D In Womens Follow-Up, 1-201 Victorina. Health PA, Routine 6 700 PO Box Medical [address], [address], [place], 120, [id number], [place], [place], tel:+ [phone] , [place]. tel: [phone] [facility] [place] Dec-0 Jose D In Womens Follow-Up, 2-201 [place]. Health PA, Routine 6 700 PO Box Medical 15[address], [address], [place], 120, [id number], [place], tel:+ [phone] , [place]. tel: [phone] [facility] [place] Nov-2 Jose D In Womens Follow-Up, 3-201 [place]. Health PA, Routine 6 700 PO Box Medical [address], [address], [place], 120, [id number], [place], [place], tel:[phone] , [place]. tel: [phone] [facility] [place] Previous Low Nov-0 Jose D In Womens Transverse 7-201 Victor[place]. Yessy WHITE, 6 700 [facility] Medical 15[address], [address] [place], [facility] [place], 120, [id number], [place], [place], tel:[phone] , [place]. tel: [phone] [facility] [place] Previous Low Oct-2 Jose D Referring In Womens Transverse 4-201 [place]. Provider: Yessy WHITE, 6 700 [place] Box Medical Jose D L, 1522, Center [address], [facility] [place], 120, [place] [id number], [facility], [place], tel:[phone] [place], , [place]. [id number]. tel: tel:+ [phone] [facility] [place] Previous Low Oct-1 Jose D In Womens Transverse 0-201 Victorina. Yessy WHITE, 6 700 [facility] Medical [address], [address] [place], [facility] [place], 120, [id number], [place], tel:[phone] , [place]. tel: [phone] [facility] [place] Sep-1 Jose D Referring In Womens 9-201 Victorina. Provider: Yessy WHITE, 6 700 Victorina [facility] Medical Jose D L, 1522, Center [address], [facility], 120, [place] [id number], [facility] 120, [place], tel:[phone] [place], , [place]. [id number]. tel: tel: [phone] [facility] [place] Sep-0 Jose D Referring In Womens 7-201 Victorina. Provider: Yessy WHITE, 6 700 [place] Box Medical Jose D L, 1522, Center [address], [facility] [place], 120, [place] [id number], [facility] 120, [place], tel:[phone] [place], , [place]. [id number]. tel: tel:[phone] [facility] [place] Pap Smear Oct- Jose D In Women Screening, Cervix 8-201 Victorina. [facility], 6 700 PO Box Medical 15[address], [address] [place], [facility] [place], 120, [id number], [facility] [place], tel:[phone] 796815 , [place]. tel: [phone] [facility] [place] Oct- Krystian In Womens 3-201 Tran. [facility], 6 700 PO Box Medical 15[address], [address] [place], [facility] [place], 120, [id number], [facility] [place], tel:[phone] 994597 , [place]. tel: [phone] Family History Family Member Diagnosis Age At [...] Authorization(s) [employer] - Medicaid [place] [id number] [employer] - Medicaid [place] [id number] [employer] - Medicaid [place] [id number] [employer] - Medicaid [place] [id number] Social History Type Description Quantity Date Captured Alcohol Use Details No Caffeine Use Details Unknown Tobacco Use Status Smoking Status Former smoker Vital Signs Date / Height Weight BMI Pulse Blood Temperature Respiratory Body Head BMI Time: Rate Pressure Rate Surface Circumference percentile Area 264.50 46.8 130/86 2018 lbs 5 mm[Hg] 4:25 kg/m PM eter (2) Chief Complaint And Reason For Visit Unknown Chief Complaint And Reason For Visit Reason For Referral Reason For Referral Unknown Plan Of Care Date Type Action Status Appointment Leida Manzano BOOKED Appointment Leida Manzano BOOKED Appointment Jose Juan, Leida BOOKED Appointment Rush, Leida BOOKED Appointment Jose Juan, Leida BOOKED Appointment Jose Juan, Leida BOOKED Appointment Rush, Leida BOOKED Appointment Rush, Leida BOOKED Appointment Jose Juan, Leida BOOKED Appointment Rush, Leida BOOKED Appointment Rush, Leida BOOKED Appointment Rush, Leida BOOKED Appointment Jose Juan, Leida BOOKED Appointment Rush, Leida BOOKED Appointment Rush, Leida BOOKED Appointment Jose Juan, Leida BOOKED Appointment Rush, Leida BOOKED Appointment Jose Juan, Leida BOOKED Appointment Jose Juan, Leida BOOKED Appointment Jose Juan, Leida BOOKED Appointment Jose Juan, Leida BOOKED Appointment Jose Juan, Leida BOOKED Appointment Rush, Leida BOOKED Appointment Rush, Leida BOOKED Appointment Jose Juan, Leida BOOKED Appointment Jose Juan, Leida BOOKED Appointment Rush, Leida BOOKED Future Order: Radiology Order Ultrasound, OB Limited ([id number]) Ordered Future Order: Radiology Order Umbilical Artery Echo ([id number]) Ordered Future Order: Radiology Order Ultrasound, OB Limited ([id number]) Ordered Future Order: Radiology Order Umbilical Artery Echo ([id number]) Ordered Future Order: Radiology Order Ultrasound, OB Limited ([id number]) Ordered Future Order: Radiology Order Umbilical Artery Echo ([id number]) Ordered Future Order: Radiology Order Ultrasound < 14 wks ([id number]) Ordered Future Order: Radiology Order Ultrasound OB, Transvaginal ([id number] ) Ordered Future Order: Radiology Order Ultrasound OB, Transvaginal ([id number] ) Ordered Future Order: Radiology Order Ultrasound < 14 wks ([id number]) Ordered Future Order: Radiology Order Ultrasound < 14 wks ([id number]) Ordered Future Order: Lab Order Pap Smear [...]
--- OUTSIDE RECORDS SUMMARY | 2018-02-01 03:20 | External Medical Summary | Continuity of Care Document ---
:1990 Author Organization [facility] Address [address] [place], [place] [address] Phone Care Team Providers Name Role Phone [facility] Unavailable Allergies, Adverse Reactions, Alerts Substance Reaction Severity Status Penicillins Hives Unknown Active erythromycin base Nausea Unknown Active cephalexin Hives Unknown Active Medications Medication Instructions Dosage Effective Dates Status Comments (start - stop) Bactrim DS 800 take 1 tablet by Not Available - Active mg-160 mg tablet oral route every 12 hours for 5 days Vitamin take 1 tablet by Not Available [...] - Type A blood, Rh negative - Morbid (severe) obesity due to excess [...] - trimester 19 weeks gestation of - Twin preg, unsp [...] Reference Range Abnormal Flag Comments Panel Description: AFP Tetra Results Report 11:35:00 Test Results: *Screen 11:35:00 Negative* Gest. Age on 17.4 WEEKS Collection Date 11:35:00 Gestat. Age Based Ultrasound On 11:35:00 17.4 on 12[birth year]13/2017 [age] CARRILLO 11:35:00 Race 11:35:00 Weight 259 lbs 11:35:00 Insulin Dep No Diabetes 11:35:00 Multiple Gestation Twins 11:35:00 AFP Value 51.2 ng/mL 11:35:00 AFP MoM 1.79 11:35:00 hCG Value 42606 mIU/mL 11:35:00 hCG MoM 1.65 11:35:00 uE3 Value 1.77 ng/mL 11:35:00 uE3 MoM 1.84 11:35:00 JESSICA Value 183.78 pg/mL 11:35:00 JESSICA MoM 1.51 11:35:00 OSBR Risk 1 2623 IN 11:35:00 DSR (Second 03361 Trimester) 1 IN 11:35:00 DSR (By Age) 1 971 IN 11:35:00 T18 Risk See 11:35:00 interpretatio n. T18 (By Age) 1:3784 11:35:00 Interpretation Comment Interpretation: Screen 11:35:00 NegativeThis result is screen negative for OSB and Down Syndrome.Trisomy 18 risks cannot be determined for twin pregnancies.The AFP MoM and patient specific risks are calculated based ongestational age and the clinical information provided. Screeningefficiency is diminished in twin pregnancies. This test identifiesup to 48% of open neural tube defects. Closed neural tube defectsand some open defects may not be detected by this test. The detec-tion rate of Down Syndrome for twin pregnancies has not beendetermined for four markers, but is at least 50% based on triplescreen data. The [employer] College of Obstetricians and Gynecologistsrecommends amniocentesis be offered to women age 35 and older.Recalculations are not recommended when gestational dating by LMP andultrasound are within 10 days. Comments: Comment Adelaide Frank, 11:35:00 Ph.D., [facility] [employer] Operator .References: Available Upon Request. .Multiples Of Median Cutoffs Abbreviation Definitions For AFP Elevations IDD- Insulin Dep DiabetesSingleton 2.5 Black 2.8 OSBR- Open Spina BifidaIDD 2.0 Twins 4.5 RiskDSR Cutoff 1:270 DSR- Down Syndrome RiskT18 Cutoff 1:100 T18- Trisomy 18 .Down Syndrome and Trisomy 18 screening are consideredInvestigational .For further inquiries contact [employer] Servicesat [phone]. PDF . 11:35:00 Advance Directives Directive Yes / No Effective Date File Name Unknown Encounters Encounter Practice Location Reason(s) Diagnoses Date Provider Care Team Description For Visit Members Sage [place] Morbid (severe) Rafael- Jose D In Womens obesity due to 4-201 Victor[place]. Health PA, excess 8 700 PO Box [facility] 1522, [facility], [facility], monochorionic/jessica [place] Abreu, mniotic, unsp 120, [id number], trimesterPrevious [place], [place] Low Transverse [place], tel:[phone] C-SectionType A [id number] blood, Rh , [place]. negative tel: [phone] Sage [place] Supervision of Rafael-1 Jose D In Womens Ultrasound other high risk 4-201 [place]. Health PA, pregnancies, 8 700 PO Box [facility] Medical 1522, trimesterTwin [facility], , Sa[place]l Abreu, monochorionic/jessica 120, [id number], mniotic, unsp [place], [place] trimesterOther [place], tel:[phone] malformation of [id number] 321450 placenta, second , [place]. wslpcipsh32 weeks tel:+08-16 gestation of [phone] [facility] [place] Supervision of May-3 Jose D In Womens other high risk 0-201 [place]. Health PA, pregnancies, 8 700 PO Box second Medical 1522, trimesterTwin [facility], , Sa[place] Abreu, monochorionic/jessica 120, [id number], mniotic, unsp [place], [place] trimesterPrevious [place], tel:+[phone] Low Transverse [phone] C-SectionType A , [place]. blood, Rh tel: negative [phone] [facility] [place] Supervision of May-3 Jose D In Womens Ultrasound other high risk 0-201 [place]. Health PA, pregnancies, 8 700 PO Box second Medical 1522, [facility], , [place] Abreu, monochorionic/jessica 120, [id number], mniotic, unsp [place], [place] trimesterOther [place], tel:+ malformation of [phone] 710202 placenta, second , [place]. tupjbhshw57 weeks tel:+08-16 gestation of [phone] [facility] [place] Urticaria, May-2 Jose D In Womens unspecifiedTwin 1-201 [place]. Health PA, , 8 700 PO Box monochorionic/jessica Medical 1522, mniotic, unsp [facility], trimesterPrevious [place] Abreu, Low Transverse 120, [id number], C-Yzylibr98 weeks [place], [place] gestation of [place], tel:+ [phone] , [place]. tel: [phone] [facility] [place] Twin , May-1 Jose D In Womens monochorionic/jessica 0-201 [place]. Health PA, mniotic, unsp 8 700 PO Box trimesterPrevious Medical 1522, Low Transverse [place], C-Ebkkoox14 weeks Sa[place] Abreu, gestation of 120, [id number], pregnancyType A [place], [place] blood, Rh [place], tel:[phone] negative [phone] 185181 , [place]. tel: [phone] [facility] [place] Twin , May-1 Jose D In Womens Ultrasound monochorionic/jessica 0-201 [place]. Health PA, mniotic, first 8 700 PO Box trimesterPrevious Medical 1522, Low Transverse Center [place], C-SectionObesity Saúl Abreu, complicating 120, , , second [place], [place] vozoqdzqv18 weeks [place], tel:+3162 gestation of [id number] , [place]. tel: [phone] Sage [place] Supervision of Apr-1 Jose D In Womens other high risk 2-201 [place]. Health PA, pregnancies, 8 700 PO Box first Medical 1522, trimesterTwin Center [place], , [place] Abreu, monochorionic/jessica 120, , mniotic, first [place], [place] trimesterPrevious [place], tel:[phone] Low Transverse [phone] 196790 C-Besnywp14 weeks , [place]. gestation of tel: [phone] [facility] [place] Twin , Apr-1 Jose D In Womens Ultrasound monochorionic/jessica 2-201 [place]. Health PA, mniotic, first 8 700 PO Box trimesterPrevious Medical 1522, Low Transverse Center [place], C-Afqpvlx72 weeks Saú[place] Abreu, gestation of 120, , [place], [place], tel:[phone] , [place]. tel: [phone] [facility] [place] Twin preg, unsp Mar-2 Jose D In Womens Ultrasound num plcnta & Victorina. Health PA, amnio sacs, first 8 700 PO Box trimesterPrevious Medical 1522, Low Transverse [place] C-SectionObesiSaúl castellano Dr, complicating 120, , , first [place], [place] trimester9 weeks [place], tel:+316 gestation of [phone] 196790 , [place]. tel: [phone] Sage [place] Twin preg, unsp Mar-2 Jose D In Womens num plcnta & [place]. Health PA, amnio sacs, first 8 700 PO Box trimesterPrevious Medical 1522, Low Transverse Center [place] C-SectionPap Saú[place] Abreu, Smear Screening, 120, , CervixEncounter [place], [place] for suprvsn of [place], tel:+ normal , [phone] first trimester9 , [place]. weeks gestation tel: of [phone] [facility] [place] Dec-2 Jose D In Womens Follow-Up, 1-201 [place]. Health CHRISTOPHER, Routine 6 700 PO Box Medical [address], [address] [place], [facility], 120, [id number], [place], [place], tel:[phone] , [place]. tel: [phone] [facility] [place] Dec-0 Jose D In Womens Follow-Up, 2-201 [place]. Health CHRISTOPHER, Routine 6 700 PO Box Medical 15[address], [address] [place], [facility], 120, , [facility] [place], tel:[phone] , [place]. tel: [phone] [facility] [place] Nov-2 Jose D In Womens Follow-Up, 3-201 [place]. Health CHRISTOPHER, Routine 6 700 PO Box Medical 15[address], [address] [place], [facility], 120, [id number], [place], [place], tel:[phone] , [place]. tel: [phone] [facility] [place] Previous Low Nov-0 Jose D In Womens Transverse 7-201 [place]. Health CHRISTOPHER, 6 700 PO Box Medical 15[address], [address] [place], [facility], 120, [id number], [place], [place], tel:[phone] , [place]. tel: [phone] [facility] [place] Previous Low Oct-2 Jose D Referring In Womens Transverse 4-201 Victorina. Provider: Health CHRISTOPHER, 6 700 [place] PO Box Medical Jose D L, 1522, [place] [address], [facility], 120, [place] [id number], [facility] 120, [place], [place], tel:[phone] [place], , [place]. [id number]. tel: tel: [phone] [facility] [place] Previous Low Oct-1 Jose D In Womens Transverse 0-201 [place]. Health CHRISTOPHER, 6 700 [facility] 1522, [address] [place], [facility] [place], 120, [id number], [place], [place], tel:+ [phone] , [place]. tel: [phone] [facility] [place] Sep-1 Jose D Referring In Womens 9-201 Victorina. Provider: Yessy WHITE, 6 700 Victorina [facility] L, 1522, Center [address], [facility] [place], 120, [place] [id number], [place] [address], [place], [place], tel:[phone] [place], , . [id number]. tel: tel: [phone] [facility] [place] Sep-0 Jose D Referring In Womens 7-201 Victorina. Provider: Yessy WHITE, 6 700 Victor[place] [facility] L, 1522, [address] [facility] Dr Cat[place], [facility] [place], 120, [place] [id number], [place] [address], [place], [place], tel:[phone] [place], , . [id number]. tel: tel: [phone] Sage [place] Pap Smear Apr-2 Jose D In Womens Screening, Cervix 8-201 [place]ina. Yessy WHITE, 6 700 [facility] 1522, [address] [place], [facility] [place], 120, [id number], [place], [place], tel:[phone] , [place]. tel: [phone] S[facility] [place] Apr-1 Krystian In Womens 3-201 Tran. Health CHRISTOPHER, 6 700 [facility] 15[address], [address], [facility] [place], 120, [id number], [place], [place], tel:[phone] , [place]. tel: [phone] Family History Family Member Diagnosis Age At [...] Record Payers Payer name Insurance type Covered republican ID Authorization(s) [employer] - Medicaid [place] [id number] [employer] - [place] [id number] [employer] - Medicaid [place] [id number] [employer] - Medicaid [place] [id number] Social History Type Description Quantity Date Captured [...] Future Order: Radiology Order Ultrasound, OB Limited ([id number]) Ordered Future Order: Radiology Order Umbilical Artery Echo ([id number]) Ordered Future Order: Radiology Order Ultrasound, OB Limited ([id number]) Ordered Future Order: Radiology Order Umbilical Artery Echo ([id number]) Ordered Future Order: Radiology Order Ultrasound < 14 wks ([id number]) Ordered Future Order: Radiology Order Ultrasound OB, Transvaginal ([id number] ) Ordered Future Order: Radiology Order Ultrasound OB, Transvaginal ([id number] ) Ordered Future Order: Radiology Order Ultrasound < 14 wks ([id number]) Ordered Future Order: Radiology Order Ultrasound < 14 wks ([id number]) Ordered Future Order: Lab Order Pap Smear [...]
--- OUTSIDE RECORDS SUMMARY | 2018-02-01 03:20 | External Medical Summary | Continuity of Care Document ---
:1990 Author Organization [facility] [employer] [facility] Address [address] [place], [place] [id number] Phone Care Team Providers Name Role Phone [facility] Unavailable Allergies, Adverse Reactions, Alerts Substance [...] Follow-Up, Routine - Follow-Up, Routine - Twin , - monochorionic/diamniotic, first trimester Previous Low Transverse - 11 weeks gestation of - Supervision of other [...] first trimester 9 weeks gestation of - Previous Low Transverse - Previous Low Transverse - Previous Low Transverse - Pap Smear Screening, Cervix - Asthma Active Active Procedures Procedure Date OB US < 14 WKS, SINGLE FETUS TRANSVAGINAL US, OBSTETRIC Results Test Name Date and Time Measure Units Reference Range Abnormal Flag Comments Unknown Advance Directives Directive Yes / No Effective Date File Name Unknown Encounters Encounter Practice Location Reason(s) Diagnoses Date Provider Care Team Description For Visit Members [facility] [place] Supervision of Jose D In Womens other high risk [place], pregnancies, 8 700 [address] first Medical 1522, [facility]Twin [facility] [place], , Sa[place]l Abreu, monochorionic/stephanie 120, , mniotic, first [place], trimesterPrevious [place], tel:[phone] Low Transverse [id number] C-[id number] weeks , [place]. gestation of tel: [phone] [facility] [place] Twin , Jose D In Womens Ultrasound monochorionic/stephanie - [facility], mniotic, first 8 700 PO Box trimesterPrevious Medical 1522, Low Transverse [facility] [place], C-Osstbqn73 weeks Saúl Abreu, gestation of 120, , [place], tel:[phone] , [place]. tel: [phone] [facility] [place] Twin preg, unsp Sep-2 Jose D In Womens Ultrasound num plcnta & [facility], amnio sacs, first 8 700 PO Box trimesterPrevious Medical 1522, Low Transverse [facility] [place], C-SectionObesity Saúl Abreu, complicating 120, [id number], , first [place], [place] trimester9 weeks [place], tel:[phone] gestation of [id number] , [place]. tel: [phone] [facility] [place] Twin preg, unsp Mar-2 Jose D In Womens num plcnta & 9-201 [facility] CHRISTOPHER, amnio sacs, first 8 700 PO Box trimesterPrevious Medical 1522, Low Transverse [facility] [place], C-SectionBillie Abreu, [facility], Smear Screening, 120, [id number], CervixEncounter [place], for suprvsn of [place], tel:[phone] normal , [id number] first trimester9 , [place]. weeks gestation tel:[phone] of [phone] [facility] [place] Dec-2 Jose D In Womens Follow-Up, 1-201 [facility] CHRISTOPHER, Routine 6 700 PO Box Medical [address], [address], [facility] [place], 120, , [facility] [place], tel:[phone] , [place]. tel: [phone] [facility] [place] Dec-0 Jose D In Womens Follow-Up, 2-201 [facility] CHRISTOPHER, Routine 6 700 PO Box Medical [address], [address], [facility] [place], 120, [id number], [facility] [place], tel:[phone] , [place]. tel: [phone] [facility] [place] Nov-2 Jose D In Womens Follow-Up, 3-201 [place] CHRISTOPHER, Routine 6 700 PO Box Medical [address], [address], [facility] [place], 120, [id number], [facility] [place], tel:[phone] , [place]. tel: [phone] [facility] [place] Previous Low Nov-0 Jose D In Womens Transverse 7-201 [place] CHRISTOPHER, 6 700 PO Box Medical [address], [address], [facility] [place], 120, [id number], [facility] [place], tel:[phone] , [place]. tel: [phone] [facility] [place] Previous Low Oct-2 Jose D Referring In Womens Transverse 4-201 [place]. Provider: Health PA, 6 700 [place] PO Box Medical Jose D L, 1522, [place] [address], [facility], 120, [place] [id number], [facility] 120, [place], [place], tel:+ [phone] [place], , [place]. [id number]. tel: tel:+ [phone] [facility] [place] Previous Low Oct-1 Jose D In Womens Transverse 0-201 [facility], 6 700 [facility] 15[address], [place] [address] Catia, [facility] [place], 120, [id number], [place], tel:[phone] , [place]. tel: [phone] [facility] [place] Sep-1 Jose D Referring In Womens 9-201 [place]. Provider: Health PA, 6 700 [place] [facility] L, 1522, [address], [facility], 120, [place] [id number], [facility] 120, [place], tel:[phone] [place], , [place]. [id number]. tel: tel: [phone] [facility] [place] Sep-0 Jose D Referring In Womens 7-201 [place]. Provider: Health CHRISTOPHER, 6 700 [place] [facility] L, 1522, [address], [facility], 120, [place] [id number], [place] [address], [place], tel:[phone] [place], , [place]. [id number]. tel: tel:[phone] [facility] [place] Pap Smear Apr-2 Jose D In Womens Screening, Cervix 8-201 [facility], 6 700 [facility] 15[address], [place] [address] Catia, [facility] [place], 120, [id number], [facility] [place], tel:[phone] , [place]. tel: [phone] [facility] [place] Apr-1 Krystian In Womens 3-201 Tran. Health PA, 6 700 [facility] [address], [place] [address] Catia, [facility] [place], 120, [id number], [facility], tel:[phone] , . tel:[phone] Family History Family Member Diagnosis Age At [...] Authorization(s) [employer] - Medicaid MC [id number] [employer] - Medicaid [place] [id number] [employer] - Medicaid MC [id number] [employer] - Medicaid MC [id number] Social History Type Description Quantity Date Captured [...] Manzano BOOKED Future Order: Radiology Order Ultrasound OB, Transvaginal ([id number] ) Ordered Future Order: Radiology Order Ultrasound < 14 wks ([id number]) Ordered Future Order: Radiology Order Ultrasound < 14 wks ([id number]) Ordered Future Order: Radiology Order Ultrasound OB, Transvaginal ([id number] ) Ordered Future Order: Lab Order Pap Smear [...]
--- OUTSIDE RECORDS SUMMARY | 2018-02-01 03:20 | External Medical Summary | Continuity of Care Document ---
:1990 Author Organization [facility] [employer] [facility] Address [address] [place], [place] [id number] Phone Care Team Providers Name Role Phone [facility] Unavailable Allergies, Adverse Reactions, Alerts [...] - trimester 17 weeks gestation of - Morbid (severe) obesity [...] Health PA, excess [address] [facility] 1522, , [facility], augustohoriofeli/stephanie Abreu, Sa[place]l [place], mniotic, unsp 120, [id number], trimesterPrevious [place], [place] Low Transverse [place], tel:[phone] C-SectionType A [id number] blood, Rh , [place]. negative tel: [phone] [facility] [place] Supervision of Jose D In Womens Ultrasound other high risk 4-201 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 pcytszsky71 weeks tel:+08-16 gestation of [phone] [facility] [place] Supervision of Jose D In Womens other high risk 0-201 [facility], pregnancies, 8 700 PO Box second Medical 1522, [facility] , , Sa[place]l [place], monochorionic/stephanie 120, [id number], mniotic, unsp [place], [place] trimesterPrevious [place], tel:[phone] Low Transverse [id number] C-SectionType A , [place]. blood, Rh tel: negative [phone] [facility] [place] Supervision of Jose D In Womens Ultrasound other high risk 0-201 [facility], pregnancies, 8 700 PO Box second Medical 1522, [facility] , Saúl Abreu, monochorionic/stephanie 120, [id number], mniotic, unsp [place], [place] trimesterOther [place], tel:+ malformation of [phone] placenta, second , [place]. wlukhawah82 weeks tel: gestation of [phone] [facility] [place] Urticaria, May-2 Jose D In Womens unspecifiedTwin 1-201 [facility], , 8 700 PO Box monochorionic/stephanie Medical 1522, mniotic, unsp [facility] [place], trimesterPrevious Saúl Abreu, Low Transverse 120, [id number], C-Laebkoy71 weeks [place], gestation of [place], tel:+ [phone] , [place]. tel: [phone] [facility] [place] Twin , November-1 Jose D In Womens monochorionic/stephanie 0-201 [facility], mniotic, unsp 8 700 PO Box trimesterPrevious Medical 1522, Low Transverse [facility] [place], C-Vgevsul30 weeks Saúl Abreu, gestation of 120, [id number], pregnancyType A [place], blood, Rh [place], tel:+ negative [phone] , [place]. tel: [phone] [facility] [place] Twin , May-1 Jose D In Womens Ultrasound monochorionic/stephanie 0-201 [facility], mniotic, first 8 700 PO Box trimesterPrevious Medical 1522, Low Transverse [facility] [place], C-SectionObesity Saúl Abreu, complicating 120, [id number], , second [place], [place] weeks [place], tel:+ gestation of [phone] 1967[address] , [place]. tel: [phone] [facility] [place] Supervision of Apr-1 Jose D In Womens other high risk 2-201 [facility], pregnancies, 8 700 PO Box first Medical 1522, trimesterTwin [facility] [place], , Saúl Abreu, monochorionic/stephanie 120, [id number], mniotic, first [place], [place] trimesterPrevious [place], tel:+ Low Transverse [phone] [address] C-Tkllcaf28 weeks , [place]. gestation of tel:[phone] [facility] [place] Twin , Apr- Jose D In Womens Ultrasound monochorionic/stephanie [facility], mniotic, first 8 700 PO Box trimesterPrevious Medical 1522, Low Transverse [facility] [place], C-Onwyitw84 weeks Saúl Abreu, gestation of 120, [id number], [place], [place], tel:[phone] , [place]. tel: [phone] [facility] [place] Twin preg, unsp Mar-2 Jose D In Womens Ultrasound num plcnta & [place] CHRISTOPHER, amnio sacs, first 8 700 PO Box trimesterPrevious Medical 1522, Low Transverse [facility] [place], C-SectionObesity Saúl Abreu, complicating 120, [id number], , first [place], trimester9 weeks [place], tel:+ gestation of , [place]. tel: [phone] [facility] [place] Twin preg, unsp Mar-2 Jose D In Womens num plcnta & [place] CHRISTOPHER, amnio sacs, first 8 700 PO Box trimesterPrevious Medical 1522, Low Transverse [facility] [place], C-SectionPap Saúl Abreu, Smear Screening, 120, , CervixEncounter [place], for suprvsn of [place], tel: normal , [phone] first trimester9 , [place]. weeks gestation tel: of [phone] [facility] [place] Dec-2 Jose D In Womens Follow-Up, [place] CHRISTOPHER, Routine 6 700 PO Box Medical [address], [address], [place], 120, [id number], [place], [place], tel:[phone] , [place]. tel: [phone] [facility] [place] Dec-0 Jose D In Womens Follow-Up, [place] CHRISTOPHER, Routine 6 700 PO Box Medical [address], [address], Ste [place], 120, [id number], [place], [place], tel:[phone] , [place]. tel: [phone] [facility] [place] Nov-2 Jose D In Womens Follow-Up, 3-201 [place] CHRISTOPHER, Routine 6 700 PO Box Medical 15[address], [place] [address] [place], [place], 120, [id number], [place], [place], tel:[phone] , [place]. tel: [phone] [facility] [place] Previous Low Nov-0 Jose D In Womens Transverse 7-201 [place] CHRISTOPHER, 6 700 PO Box Medical 15[address], [place] [address] [place], [place], 120, [id number], [place], [place], tel:[phone] , [place]. tel: [phone] [facility] [place] Previous Low Oct-2 Jose D Referring In Womens Transverse 4-201 [place]. Provider: Yessy WHITE, 6 700 [place] PO Box Medical Jose D L, 1522, [address], [facility], 120, [place] [id number], [facility] 120, [place], tel:[phone] [place], , [place]. [id number]. tel: tel:+ [phone] [facility] [place] Previous Low Oct-1 Jose D In Womens Transverse 0-201 [place]. [facility] CHRISTOPHER, 6 700 Box Medical [address], [address] [place], [place], 120, [id number], [place], [place], tel:[phone] , [place]. tel: [phone] [facility] [place] Sep-1 Jose D Referring In Womens 9-201 [place]. Provider: Health CHRISTOPHER, 6 700 [place] PO Box Medical Jose D L, 1522, [address], [facility] [place], 120, [place] [id number], [facility] 120, [place], tel:[phone] [place], , [place]. [id number]. tel: tel:+ [phone] [facility] [place] Sep-0 Jose D Referring In Womens 7-201 [place]. Provider: Health CHRISTOPHER, 6 700 [place] PO Box Medical Jose D L, 1522, Center [facility] [address] Catia, [facility] [place], 120, [place] [id number], [facility] 120, [place], [place], tel:+ [phone] [place], , [place]. [id number]. tel: tel: [phone] [facility] [place] Pap Smear Oct- Jose D In Women Screening, Cervix 8-201 [place] PA, 6 700 PO Box Medical 15[address], [place] [address] [place], [place], 120, [id number], [place], [place], tel: [phone] , [place]. tel: [phone] [facility] [place] Oct- Krystian In Womens 3-201 Tran. Health CHRISTOPHER, 6 700 Box Medical 15[address], [place] [address] [place], [place], 120, [id number], [place], tel: [phone] , [place]. tel: [phone] Family History Family Member Diagnosis Age At [...] Record Payers Payer name Insurance type Covered green party ID Authorization(s) [employer] - Medicaid [place] [id number] [employer] - Medicaid [place] [id number] [employer] - Medicaid [place] [id number] [employer] - Medicaid MC [id number] Social History Type Description Quantity Date Captured Unknown Vital Signs Date / Height Weight BMI Pulse Blood Temperature Respiratory Body Head BMI Time: Rate Pressure Rate Surface Circumference percentile Area Unknown Chief Complaint And Reason For Visit Unknown Chief Complaint And Reason For Visit Reason For Referral Reason For Referral Unknown Plan Of Care Date Type Action Status Appointment Jose Juan, Leida BOOKED Appointment Jose Juan, Leida BOOKED Appointment Chadwick, Leida BOOKED Appointment Chadwick, Leida BOOKED Appointment Jose Juan, Leida BOOKED Appointment Jose Juan, Leida BOOKED Appointment Jose Juan, Leida BOOKED Appointment Chadwick, Leida BOOKED Appointment Jose Juan, Leida BOOKED Appointment Chadwick, Leida BOOKED Appointment Chadwick, Leida BOOKED Appointment Chadwick, Leida BOOKED Appointment Chadwick, Leida BOOKED Appointment Jose Juan, Leida BOOKED Appointment Chadwick, Leida BOOKED Appointment Jose Juan, Leida BOOKED Appointment Jose Juan, Leida BOOKED Appointment Chadwick, Leida BOOKED Appointment Jose Juan, Leida BOOKED Appointment Chadwick, Leida BOOKED Appointment Chadwick, Leida BOOKED Appointment Chadwick, Leida BOOKED Appointment Chadwick Leida BOOKED Appointment Chadwick, Leida BOOKED Appointment Chadwick, Leida BOOKED Appointment ChadwickEladioa BOOKED Appointment Chadwick Leida BOOKED Appointment Jose Juan Leida BOOKED Appointment Jose Juan, Leida BOOKED Appointment ChadwickEladioa BOOKED Appointment ChadwickEladioa BOOKED Appointment Jose Juan Leida BOOKED Future Order: Radiology Order Ultrasound, OB Limited ([id number]) Ordered Future Order: Radiology Order Umbilical Artery Echo ([id number]) Ordered Future Order: Radiology Order Ultrasound, OB Limited ([id number]) Ordered Future Order: Radiology Order Umbilical Artery Echo ([id number]) Ordered Future Order: Radiology Order Ultrasound < 14 wks ([id number]) Ordered Future Order: Radiology Order Ultrasound OB, Transvaginal ([id number] ) Ordered Future Order: Radiology Order Ultrasound OB, Transvaginal ([id number] ) Ordered Future Order: Radiology Order Ultrasound < 14 wks ([id number]) Ordered Future Order: Radiology Order Ultrasound < 14 wks ([id number]) Ordered Future Order: Lab Order Pap Smear [...]
[2018-02-01] MEDS ORDERED: HYDROCODONE/APAP 5mg/325mg TABLET PO ONE (04:00)
[2018-02-01 04:17] VITALS: BMI 46.7
[2018-02-01] MEDS: LR 1,000 ML IV SCH ×3 (04:40→17:39)
[2018-02-01] MEDS ORDERED: CALCIUM GLUCONATE 4.65mEq/10ml INJECTION IV PRN (06:58)
[2018-02-01] MEDS ORDERED: MAGNESIUM SULFATE 6gm PREMIX 6 GM/100 ML BAG IV ONE (06:58)
[2018-02-01] MEDS: MAGNESIUM SULFATE DRIP 20 GM/500 ML BAG IV SCH ×2 (07:50→17:36)
--- NOTE | 2018-02-01 07:54 | Ultrasound Report ---
Indication: R side pain PROCEDURE: US gall bladder: Encounter: Initial Comparison: None Technique: Grayscale and color Doppler sonographic imaging of the right upper quadrant of the abdomen was performed. Findings: Hepatic parenchyma is homogeneous without evidence for focal mass. The gallbladder shows a prominent shadowing 2 cm gallstone near the neck. There are additional shadowing gallstones present. No gallbladder wall thickening. Sonographic Sr sign is negative. Both the intra and extrahepatic biliary system are of normal caliber with the common duct measuring 4 mm in dimension. Pancreas is not well seen due to shadowing bowel gas. The right kidney is present without collecting system dilatation. The right kidney measures 11.6 cm in length. Impression: Cholelithiasis without other findings of acute cholecystitis. .
[2018-02-01] MEDS ORDERED: BETAMETHASONE 30 MG/5 ML INJECTION IM SCH (10:00)
--- NOTE | 2018-02-01 11:20 | OB/GYN Progress Note ---
[facility] Progress Note - Subjective Today's Date: 02/01/18 - Objective Vital signs: Temperature 98.3 F 02/01/18 04:12 Pulse Rate 100 02/01/18 04:28 Respiratory Rate 20 02/01/18 04:28 Blood Pressure 126/92 H 02/01/18 04:28 Laboratory Result: 02/01/18 04:22 02/01/18 04:22 Labs: UA Ur Collection Type Urine, void-cc/notcc 02/01/18 04:13 Urine Color Yellow (YELLOW) 02/01/18 04:13 Urine pH 6.5 (5.0-8.0) 02/01/18 04:13 Ur Specific [place] 1.015 (1.015-1.025) 02/01/18 04:13 Urine Protein Negative (NEGATIVE) 02/01/18 04:13 Urine Glucose (UA) Negative (NEGATIVE) 02/01/18 04:13 Urine Ketones Negative (NEGATIVE) 02/01/18 04:13 Urine Occult Blood Negative (NEGATIVE) 02/01/18 04:13 Urine Nitrate Negative (NEGATIVE) 02/01/18 04:13 Urine Bilirubin Negative (NEGATIVE) 02/01/18 04:13 Urine Urobilinogen 0.2 EU/DL (NORMAL) 02/01/18 04:13 Ur Leukocyte Esterase 2+ (NEGATIVE) A 02/01/18 04:13 Additional Findings: Pt sleeping, pain resolved per RN. GB sono showed large stone. Neuroprotective MagSO4 running, betamethasone this p.m. Will plan dismissal to low fat diet tonight, consider Gen Surgery consult.
[2018-02-01] MEDS ORDERED: HYDROCODONE/APAP 5mg/325mg TABLET PO PRN (13:39)
[2018-02-01] MEDS ORDERED: ACETAMINOPHEN 500 MG TABLET PO PRN (13:42)
[2018-02-01 20:59] VITALS: BP 126/79; PULSE 99; RESP 12; TEMP 98.2; O2SAT 97
== END 2018-02-01 19:50 | disposition home or self-care (01) ==
LOC: MC 03:14 → OBOBS 03:14 → MC 03:15
PROVIDERS: ADMIT Obstetrics & Gynecology; ATTEND Obstetrics & Gynecology